=== PATIENT | male | born 1990 | race Two or more races ===

== ENCOUNTER 2021-07-17 22:52 | Emergency (ER) | payer MEDICAID ==
[2021-07-18] MEDS ORDERED: AMOX-422 PO (03:24)
[2021-07-18] MEDS ORDERED: NEOM14.210 TP (03:24)
== END 2021-07-17 23:51 | disposition left against medical advice (07) ==
LOC: ER 22:53
DX: Z53.21 Procedure and treatment not carried out due to patient leaving prior to being seen by health care provider (principal)

== ENCOUNTER 2021-07-18 00:51 | Emergency (ER) | payer MEDICAID ==
[~2021-07-18] VITALS: Ht 177.8 cm; Wt 81.8 kg
[2021-07-18] MEDS ORDERED: rabies immune globulin/PF 150 unit/ml inj IMVAC STA (02:14)
[2021-07-18] MEDS ORDERED: rabies vaccine (PCEC)/PF 2.5 unit kit IMVAC ONE (02:15)
[2021-07-18] MEDS ORDERED: LIDOcaine 1% W/epiNEPHrine 1:200,000 10ml vial IJ ONE (02:15)
[2021-07-18] MEDS ORDERED: TETanus/Pertussis (Acell)/Diphther VAC/PF (Tdap-Adult) 0.5ml syringe IMVAC ONE (02:15)
[2021-07-18] MEDS ORDERED: LIDOcaine 1% w/epiNEPHrine 1:200,000 30ml vial IJ ONE (02:20)
[2021-07-18] MEDS ORDERED: LIDOcaine 1% w/epiNEPHrine 1:200,000 30ml vial IM ONE (02:25)
[2021-07-18] MEDS ORDERED: AMOX-422 PO (03:24)
[2021-07-18] MEDS ORDERED: NEOM14.210 TP (03:24)
[2021-07-18 04:28] VITALS: BP 142/98
== END 2021-07-18 03:51 | disposition home or self-care (01) ==
LOC: ER 00:51
DX: S01.411A Laceration without foreign body of right cheek and temporomandibular area, initial encounter (principal); Z72.89 Other problems related to lifestyle; Z79.2 Long term (current) use of antibiotics; Z79.899 Other long term (current) drug therapy; Z20.3 Contact with and (suspected) exposure to rabies; W54.0XXA Bitten by dog, initial encounter; Y93.89 Activity, other specified; Y92.89 Other specified places as the place of occurrence of the external cause; Y99.8 Other external cause status
CPT/HCPCS: 12013; 90375; 90471; 90472; 90675; 90715; 96372; 99284

== ENCOUNTER → 2021-07-21 | Emergency (ER) | payer MEDICAID ==
[~2021-07-21] VITALS: Ht 177.8 cm; Wt 81.8 kg
[~2021-07-21] MED LIST: AMOX-422 PO; NEOM14.210 TP; rabies vaccine (PCEC)/PF 2.5 unit kit IMVAC ONE
[2021-07-21 20:39] VITALS: BP 133/84
== END | disposition home or self-care (01) ==
LOC: ER 20:27
DX: S01.81XD Laceration without foreign body of other part of head, subsequent encounter (principal); Z23 Encounter for immunization; Z72.89 Other problems related to lifestyle; Z79.2 Long term (current) use of antibiotics; X58.XXXD Exposure to other specified factors, subsequent encounter
CPT/HCPCS: 90471; 90675; 99281

== ENCOUNTER 2021-07-26 18:29 | Emergency (ER) | payer MEDICAID ==
[~2021-07-26] VITALS: Ht 177.8 cm; Wt 81.8 kg
[~2021-07-26 18:29] MED LIST changes: -rabies vaccine (PCEC)/PF 2.5 unit kit IMVAC ONE
[2021-07-26 18:44] VITALS: BP 112/73
[2021-07-26] MEDS ORDERED: rabies vaccine (PCEC)/PF 2.5 unit kit IMVAC ONE (19:55)
== END 2021-07-26 20:48 | disposition home or self-care (01) ==
LOC: ER 18:30
DX: S01.411D Laceration without foreign body of right cheek and temporomandibular area, subsequent encounter (principal); F17.200 Nicotine dependence, unspecified, uncomplicated; Z23 Encounter for immunization; Z48.02 Encounter for removal of sutures; Z72.89 Other problems related to lifestyle; Z79.2 Long term (current) use of antibiotics; Z20.3 Contact with and (suspected) exposure to rabies; W54.0XXD Bitten by dog, subsequent encounter
CPT/HCPCS: 90471; 90675; 99281

== ENCOUNTER 2021-08-03 12:31 | Emergency (ER) | payer MEDICAID ==
[~2021-08-03] VITALS: Ht 180.3 cm; Wt 81.8 kg
[2021-08-03 13:14] VITALS: BP 125/86
[2021-08-03] MEDS ORDERED: rabies vaccine (PCEC)/PF 2.5 unit kit IMVAC ONE (14:55)
== END 2021-08-03 16:43 | disposition home or self-care (01) ==
LOC: ER 12:32
DX: Z23 Encounter for immunization (principal); Z20.3 Contact with and (suspected) exposure to rabies; Z72.89 Other problems related to lifestyle; Z79.2 Long term (current) use of antibiotics
CPT/HCPCS: 90471; 90675; 99281